=== PATIENT | female | born 1965 | race Caucasian/White ===

== ENCOUNTER 2018-09-14 13:03 | Emergency (ER) | payer MEDICAID, OTHER ==
[~2018-09-14] VITALS: Ht 144.8 cm; Wt 42.2 kg
[2018-09-14 13:12] VITALS: BP 128/73
--- NOTE | 2018-09-14 13:12 | NUR ---
PT AMBULATED TO ED BED 02
--- NOTE | 2018-09-14 13:20 | NUR ---
EDUCATED PT OF EPINEPHINE, PT STATED SHE IS NOT ALLERGIC TO EPINEPHRINE, JUST MAKE SHE FELT PALPIATED. PT OK TO DELETE FROM [facility]
--- NOTE | 2018-09-14 13:31 | NUR ---
52F C/O DIZZINESS SINCE AM, ALSO STATED MILD 2/10 RLQ ABDOMINAL PAIN, THROBBING, ON AND OFF. NO CHANGES TO BM. STATES NAUSEA, NO VOMITING. NO VISUAL SX. NO SOB. VSS. BEDRAILS UP X1, BED LOCKED AND LOW. ERMD TO EVAL PT. DENIES PMH
--- NOTE | 2018-09-14 14:14 | NUR ---
DR. MELTON AT BEDSIDE.
--- NOTE | 2018-09-14 14:18 | NUR ---
HR 115, PER DR. MELTON GIVE PT WATER.
[2018-09-14] MEDS ORDERED: MECLIZINE 25 MG TAB PO ONE (14:20)
--- NOTE | 2018-09-14 14:30 | NUR ---
PT IN BATHROOM, PROVIDING URINE SAMPLE.
[2018-09-14 14:55] LABS: APPEARANCE,URINE CLEAR (CLEAR); BILIRUBIN,URINE NEGATIVE (NEGATIVE); BLOOD, URINE TRACE-I (NEGATIVE); COLOR,URINE YELLOW (YELLOW); LEUKOCYTE ESTERASE ,URINE NEGATIVE (NEGATIVE); NITRITE, URINE NEGATIVE (NEGATIVE); PH,URINE 6.5 (5.0-9.0); UGLUCOSE NEGATIVE (NEGATIVE)
[2018-09-14 14:59] LABS: BASOPHILS % (AUTO) 0.4 % (0.0-2.0); EOSINOPHILS % (AUTO) 0.1 % (0.0-4.0); HEMATOCRIT 43.1 % (36-48); HEMOGLOBIN 14.4 g/dL (12.0-16.0); LYMPHOCYTES # (AUTO) 1.1 K/uL (2.5-16.5); LYMPHOCYTES % (AUTO) 15.3 % (20.5-51.1); MEAN CORPUSCULAR HEMOGLOBIN 29 pg (27-31); MEAN CORPUSCULAR HGB CONC 33 g/dL (33-37); MEAN CORPUSCULAR VOLUME 86.2 fL (80-94); MONOCYTES # (AUTO) 0.3 K/uL (0.8-1.0); MONOCYTES % (AUTO) 4.5 % (1.7-9.3); NEUTROPHILS # (AUTO) 5.8 K/uL (1.8-7.7); NEUTROPHILS % (AUTO) 79.7 % (42.2-75.2); PLATELET COUNT (AUTO) 250 K/uL (140-450); RED BLOOD CELL COUNT(AUTO) 4.99 MIL/uL (4.20-5.40); RED CELL DISTRIBUTION WIDTH 13.8 % (11.6-13.7); WHITE BLOOD COUNT (AUTO) 7.3 K/uL (4.8-10.8)
[2018-09-14 15:09] LABS: ANION GAP 14.2 (8-16); CARBON DIOXIDE 29.1 mmol/L (21-32); CREATININE 0.9 mg/dL (0.6-1.3); POTASSIUM 3.3 mmol/L (3.5-5.1)
[2018-09-14 15:11] LABS: RBC,URINE 0-5 /HPF (0-5); WBC,URINE NONE SEEN /HPF (0-5)
[2018-09-14 15:15] LABS: ALBUMIN 4.7 g/dL (3.4-5.0); TOTAL BILIRUBIN 0.7 mg/dL (0.0-1.0)
--- NOTE | 2018-09-14 15:32 | NUR ---
PT STATED DIZZINESS GETTING BETTER. NO S/S OF RESPIRATORY DISTRESS NOTED.
--- NOTE | 2018-09-14 15:42 | NUR ---
US TECH AWARE OF US PELVIC NON OB ORDER.
--- NOTE | 2018-09-14 16:20 | NUR ---
pt stated dizziness relieved.
--- NOTE | 2018-09-14 16:35 | NUR ---
Dr. mcfarland evaluates pt.
[2018-09-14 16:44] VITALS: BP 100/59
--- NOTE | 2018-09-14 16:45 | NUR ---
Patient discharged with v/s stable. Written and verbal after care instructions given and explained. Patient verbalized understanding. Ambulatory with steady gait. All questions addressed prior to discharge. Advised to follow up with PMD.
== END 2018-09-14 16:45 | disposition home or self-care (01) ==
LOC: MED 13:03
DX: H81.10 Benign paroxysmal vertigo, unspecified ear (principal)
CPT/HCPCS: 36415; 70450; 76856; 80053; 81001; 81025; 83690; 85025; 93976; 99284; J8597; Q0092

== ENCOUNTER 2020-07-14 19:17 | Emergency (ER) | payer OTHER ==
[~2020-07-14] VITALS: Ht 147.3 cm; Wt 45.8 kg
[2020-07-14 19:28] VITALS: BP 132/90
--- NOTE | 2020-07-14 19:50 | NUR ---
54 Y/O FEMALE CAME TO THE ED C/O DIZZINESS, AND NAUSEA X1 DAY. PT STATES THAT SHE HAS BEEN FEELING NAUSEOUS AND LIGHTHEADED SINCE YESTERDAY. AAOX4 WITH EVEN AND STEADY GAIT; LUNGS CLEAR BL; HR EVEN AND REGULAR; PT DENIES ANY FEVER, CP, SOB, OR COUGH AT THIS TIME; PATIENT STATES PAIN OF 0/10 AT THIS TIME; VSS; PATIENT POSITIONED FOR COMFORT; HOB ELEVATED; BEDRAILS UP X2; BED DOWN. ER MD MADE AWARE OF PT STATUS. NKA PMH: DENIES
[2020-07-14] MEDS ORDERED: ONDANSETRON 4 MG ODT PO ONE (20:35)
[2020-07-14 21:09] LABS: BASOPHILS % (AUTO) 0.6 % (0.0-2.0); EOSINOPHILS % (AUTO) 0.4 % (0.0-4.0); HEMATOCRIT 40.2 % (36-48); HEMOGLOBIN 13.6 g/dL (12.0-16.0); LYMPHOCYTES # (AUTO) 1.2 K/uL (2.5-16.5); LYMPHOCYTES % (AUTO) 19.6 % (20.5-51.1); MEAN CORPUSCULAR HEMOGLOBIN 29 pg (27-31); MEAN CORPUSCULAR HGB CONC 34 g/dL (33-37); MEAN CORPUSCULAR VOLUME 85.4 fL (80-94); MONOCYTES # (AUTO) 0.4 K/uL (0.8-1.0); MONOCYTES % (AUTO) 7.2 % (1.7-9.3); NEUTROPHILS # (AUTO) 4.2 K/uL (1.8-7.7); NEUTROPHILS % (AUTO) 72.2 % (42.2-75.2); PLATELET COUNT (AUTO) 231 K/uL (140-450); RED BLOOD CELL COUNT(AUTO) 4.71 MIL/uL (4.20-5.40); RED CELL DISTRIBUTION WIDTH 13.6 % (11.6-13.7); WHITE BLOOD COUNT (AUTO) 5.9 K/uL (4.8-10.8)
[2020-07-14 21:28] LABS: ALBUMIN 4.4 g/dL (3.4-5.0); ANION GAP 13.3 (8-16); CARBON DIOXIDE 31.1 mmol/L (21-32); CREATININE 0.7 mg/dL (0.6-1.3); POTASSIUM 4.4 mmol/L (3.5-5.1); THYROID STIMULATING HORMONE 0.81 uIU/mL (0.34-3.74); TOTAL BILIRUBIN 0.6 mg/dL (0.0-1.0)
--- NOTE | 2020-07-14 21:45 | NUR ---
VITALS UPDATED AT THIS. VSS.
[2020-07-14] MEDS ORDERED: IMO2 PO (22:13)
[2020-07-14] MEDS ORDERED: ONDA-24 SL (22:13)
[2020-07-14 22:21] VITALS: BP 101/64
--- NOTE | 2020-07-14 22:21 | NUR ---
Patient discharged with v/s stable. Written and verbal after care instructions given and explained. Patient alert, oriented and verbalized understanding of instructions. Ambulatory with steady gait. All questions addressed prior to discharge. ID band removed. Patient advised to follow up with PMD. Rx of LOPERAMIDE AND ZOFRAN given. Patient educated on indication of medication including possible reaction and side effects. Opportunity to ask questions provided and answered.
== END 2020-07-14 22:21 | disposition home or self-care (01) ==
LOC: MED 19:17
DX: R11.0 Nausea (principal); R19.7 Diarrhea, unspecified; R42 Dizziness and giddiness; R10.84 Generalized abdominal pain; Z79.899 Other long term (current) drug therapy
CPT/HCPCS: 36415; 80053; 81002; 81025; 83690; 84443; 85025; 93005; 99284; Q0162

== ENCOUNTER 2022-03-06 09:10 | Emergency (ER) | payer MEDICAID, OTHER ==
[~2022-03-06] VITALS: Ht 152.4 cm; Wt 45.4 kg
[~2022-03-06 09:10] MED LIST: IMO2 PO; ONDA-188 SL
[2022-03-06 09:22] VITALS: BP 132/87
--- NOTE | 2022-03-06 09:23 | NUR ---
PT PRESENTS SELF TO ER WITH C/O "HOT FLASHES, FAST HEART RATE AND DIZZINES" YESTERDAY. TRIAGED PT, COLLECTED URINE, AWAITING TO BE SEEN BY
[2022-03-06 09:50] LABS: APPEARANCE,URINE CLEAR (CLEAR); BILIRUBIN,URINE NEGATIVE (NEGATIVE); BLOOD, URINE NEGATIVE (NEGATIVE); COLOR,URINE YELLOW (YELLOW); LEUKOCYTE ESTERASE ,URINE TRACE (NEGATIVE); NITRITE, URINE NEGATIVE (NEGATIVE); PH,URINE 6.5 (5.0-9.0); UGLUCOSE NEGATIVE (NEGATIVE)
[2022-03-06 10:02] LABS: OTHER CASTS, URINE None Seen /LPF (None Seen); RBC,URINE 0-5 /HPF (0-5); WBC,URINE 0-5 /HPF (0-5); YEAST,URINE Few /HPF (None Seen)
== END 2022-03-06 10:42 | disposition home or self-care (01) ==
LOC: MED 09:10
DX: R00.2 Palpitations (principal); M54.50 Low back pain, unspecified; R68.83 Chills (without fever)
CPT/HCPCS: 81001; 87086; 99283